=== PATIENT | male | born 1965 | race African-American/Black ===

== ENCOUNTER 2017-12-23 14:00 | Emergency (ER) | payer SELFPAY ==
[~2017-12-23] VITALS: Ht 175.3 cm; Wt 90.5 kg
[~2017-12-23 14:00] MED LIST: CARV6.2579 PO; LISI-618 PO; PRAV20TA4 PO
[2017-12-23 17:25] LABS: INFLUENZA TYPE A NEGATIVE FOR TYPE A (NEGATIVE); INFLUENZA TYPE B NEGATIVE FOR TYPE B (NEGATIVE)
[2017-12-23] MEDS ORDERED: ALBUTEROL SULFATE HFA 90 MCG/PUFF 8 GM INHALER IH ONE (18:00)
[2017-12-23] MEDS ORDERED: DEXAMETHASONE SOD PHOS 4 MG/ML 5 ML VIAL IM ONE (18:00)
[2017-12-23 18:14] VITALS: BP 145/78
== END 2017-12-23 18:34 | disposition home or self-care (01) ==
LOC: EMS 14:06
DX: J40 Bronchitis, not specified as acute or chronic (principal); J06.9 Acute upper respiratory infection, unspecified; I10 Essential (primary) hypertension; E78.00 Pure hypercholesterolemia, unspecified
CPT/HCPCS: 71045; 87804; 94640; 96372; 99285; J1100; J3535

== ENCOUNTER 2021-03-30 12:13 | Emergency (ER) | payer MEDICAID ==
[~2021-03-30] VITALS: Ht 175.3 cm; Wt 90.9 kg
[~2021-03-30 12:13] MED LIST changes: -LISI-618 PO; +LISI20TA24 PO
[2021-03-30] MEDS ORDERED: KETOROLAC TROMETHAMINE 30 MG/ML VIAL IM ONE (13:00)
[2021-03-30 13:32] VITALS: BP 141/89
== END 2021-03-30 13:43 | disposition home or self-care (01) ==
LOC: EMS 12:17
DX: M25.561 Pain in right knee (principal); E78.00 Pure hypercholesterolemia, unspecified; I10 Essential (primary) hypertension; Z79.899 Other long term (current) drug therapy
CPT/HCPCS: 96372; 99283; J1885